=== PATIENT | male | born 1975 | race African-American/Black ===

== ENCOUNTER 2018-04-14 15:41 | Emergency (ER) | payer MEDICAID ==
[~2018-04-14] VITALS: Ht 172.7 cm; Wt 122.0 kg
[2018-04-14 16:00] VITALS: BP 145/82
--- NOTE | 2018-04-14 16:23 | Emergency Room Report ---
History of Present Illness General Chief Complaint: Nausea Present Illness HPI 43-year-old male presents to the emergency department after episode of nausea, vomiting, diaphoresis and drained seeing some tunnel vision. Patient reports this is the fourth episode he's had this morning. Patient states first episode of vomiting began at approximately 7 AM. Patient reports he's been having chills all day denies fevers states this is the first time he began having the diaphoresis and feeling lightheaded. Patient denies chest pain or headaches. Patient reports midepigastric pain that is constant and he describes burning in sensation. Patient reports history of high blood pressure denies history of cardiac disease or hyperlipidemia. He denies blood in the vomit he denies constipation, diarrhea or black tarry stools. Allergies: Coded Allergies: No Known Allergies (Unverified , 04/14/18) Patient History Past Medical History: see triage record Past Surgical History: none Pertinent Family History: none Reviewed Nursing Documentation: PMH: Agreed; PSxH: Agreed Review of Systems All Other Systems: negative except mentioned in HPI Physical Exam Vital Signs Date Time Temp Pulse Resp B/P (MAP) Pulse Ox O2 Delivery O2 Flow Rate FiO2 04/14/18 15:45 98.1 90 18 154/78 98 Room Air 98.1 Medical Decision Making PA Attestation Dr. guerrero is my supervising Physician whom patient management has been discussed with. Diagnostic Impression: Primary Impression: Hyperemesis Additional Impressions: Cannabinoid hyperemesis syndrome Abdominal pain Qualified Codes: R10.13 - Epigastric pain ER Course Pt. presents to the ED c/oN/V/D x [ ] Ddx considered but are not limited to GE, colitis, acute appy, SBO, Cyclical Vomiting secondary to THC, SD/cardiac etiology. Vital signs: pt. is afebrile, H&PE are most consistent with vaso vagal response due to depleted fluids secondary to vomiting. no evidence to suggest acute abdomen on physical exam. ORDERS: Basic labs, including lipase : all unremarkable -UDS: Positive for THC ED INTERVENTIONS: -1000 NS iv hydration, -Zofran 4mg -Toradol IV -Reglan IV..pt. continues to gag/vomit - now suspicious for cannabinoid hyperemesis. -Haldol IM DISCHARGE: At this time pt. is stable for d/c to home. Will provide printed patient care instructions, and any necessary prescriptions. Care plan and follow up instructions have been discussed with the patient prior to discharge. Labs Test 04/14/18 19:30 White Blood Count 11.3 K/UL (4.8-10.8) Red Blood Count 4.50 M/UL (4.70-6.10) Hemoglobin 16.1 G/DL (14.2-18.0) Hematocrit 46.5 % (42.0-52.0) Mean Corpuscular Volume 103 FL (80-99) Mean Corpuscular Hemoglobin 35.8 PG (27.0-31.0) Mean Corpuscular Hemoglobin Concent 34.7 G/DL (32.0-36.0) Red Cell Distribution Width 10.5 % (11.6-14.8) Platelet Count 299 K/UL (150-450) Mean Platelet Volume 5.5 FL (6.5-10.1) Neutrophils (%) (Auto) % (45.0-75.0) Lymphocytes (%) (Auto) % (20.0-45.0) Monocytes (%) (Auto) % (1.0-10.0) Eosinophils (%) (Auto) % (0.0-3.0) Basophils (%) (Auto) % (0.0-2.0) Differential Total Cells Counted 100 Neutrophils % (Manual) 85 % (45-75) Lymphocytes % (Manual) 9 % (20-45) Monocytes % (Manual) 5 % (1-10) Eosinophils % (Manual) 0 % (0-3) Basophils % (Manual) 0 % (0-2) Band Neutrophils 1 % (0-8) Platelet Estimate Adequate Platelet Morphology Normal Red Blood Cell Morphology Normal Sodium Level 141 MMOL/L (136-145) Potassium Level 3.8 MMOL/L (3.5-5.1) Chloride Level 104 MMOL/L (98-107) Carbon Dioxide Level 27 MMOL/L (21-32) Anion Gap 10 mmol/L (5-15) Blood Urea Nitrogen 9 mg/dL (7-18) Creatinine 0.9 MG/DL (0.55-1.30) Estimat Glomerular Filtration Rate > 60 mL/min (>60) Glucose Level 98 MG/DL (74-106) Calcium Level 8.8 MG/DL (8.5-10.1) Total Bilirubin 0.6 MG/DL (0.2-1.0) Aspartate Amino Transf (AST/SGOT) 21 U/L (15-37) Alanine Aminotransferase (ALT/SGPT) 34 U/L (12-78) Alkaline Phosphatase 83 U/L (46-116) Total Protein 7.3 G/DL (6.4-8.2) Albumin 3.4 G/DL (3.4-5.0) Globulin 3.9 g/dL Albumin/Globulin Ratio 0.9 (1.0-2.7) Lipase 304 U/L (73-393) Urine Opiates Screen Negative (NEGATIVE) Urine Barbiturates Screen Negative (NEGATIVE) Phencyclidine (PCP) Screen Negative (NEGATIVE) Urine Amphetamines Screen Negative (NEGATIVE) Urine Benzodiazepines Screen Negative (NEGATIVE) Urine Cocaine Screen Negative (NEGATIVE) Urine Marijuana (THC) Screen Positive (NEGATIVE) EKG Diagnostic Results EP Interpretation: Dr. lala Rate: normal - 81 bpm Rhythm: NSR ST Segments: no acute changes ASA given to the pt in ED: No PA Scribe Text This Interpretation was scribed by MARGARET Saenz. CT/MRI/US Diagnostic Results CT/MRI/US Diagnostic Results : Imaging Test Ordered: Ct abdomen and pelvis with contrast Impression Radiological Impression was "unremarkable" per official radiology report. Please refer to radiologist reports for any specific details. Last Vital Signs Date Time Temp Pulse Resp B/P (MAP) Pulse Ox O2 Delivery O2 Flow Rate FiO2 04/14/18 15:45 98.1 90 18 154/78 98 Room Air 98.1 Disposition: HOME, SELF-CARE Condition: Stable Patient Instructions: Nausea and Vomiting, Adult Additional Instructions: Take medications as directed. - discontinue use of marijuana/ cannabis products. Follow up with a Primary Care Provider in 3-5 days, even if your symptoms have resolved. --Please review list of primary care clinics, if you do not already have a primary care provider Return sooner to ED if new symptoms occur, or current symptoms become worse. - Please note that this Emergency Department Report was dictated using [employer] order filler technology software, occasionally this can lead to erroneous entry secondary to interpretation by the dictation equipment. Jemima Saenz Apr 14, 2018 16:23
[2018-04-14] MEDS ORDERED: Metoclopramide 10mg/2ml Inj IVP ONE (17:45)
[2018-04-14] MEDS ORDERED: Lidocaine 2% Visc 15ml soln ORAL ONE (17:45)
[2018-04-14 18:00] VITALS: BP 115/61
[2018-04-14] MEDS ORDERED: Ketorolac 30mg Inj IV ONE (18:45)
[2018-04-14 19:38] VITALS: BP 157/78
[2018-04-14 19:58] LABS: HEMATOCRIT 46.5 % (42.0-52.0); HEMOGLOBIN 16.1 G/DL (14.2-18.0); MEAN CORPUSCULAR VOLUME 103 FL (80-99); PLATELET COUNT 299 K/UL (150-450); RED CELL DISTRIBUTION WIDTH 10.5 % (11.6-14.8); WHITE BLOOD COUNT 11.3 K/UL (4.8-10.8)
[2018-04-14] MEDS ORDERED: Pantoprazole Inj IVP ONE (20:00)
[2018-04-14] MEDS ORDERED: Isovue-300 100ml vial INJ PRN (20:00)
[2018-04-14 20:15] LABS: ANION GAP 10 mmol/L (5-15); BLOOD UREA NITROGEN 9 mg/dL (7-18); CALCIUM 8.8 MG/DL (8.5-10.1); CARBON DIOXIDE 27 MMOL/L (21-32); CHLORIDE 104 MMOL/L (98-107); CREATININE 0.9 MG/DL (0.55-1.30); POTASSIUM 3.8 MMOL/L (3.5-5.1); SODIUM 141 MMOL/L (136-145)
[2018-04-14 20:20] LABS: ALANINE AMINOTRANSFERASE 34 U/L (12-78); ALBUMIN 3.4 G/DL (3.4-5.0); ALBUMIN/GLOBULIN RATIO 0.9 (1.0-2.7); ALKALINE PHOSPHATASE 83 U/L (46-116); ASPARTATE AMINO TRANSFERASE 21 U/L (15-37); BILIRUBIN,TOTAL 0.6 MG/DL (0.2-1.0)
[2018-04-14] MEDS ORDERED: Haloperidol 5mg/ml Inj IM ONE (20:45)
--- NOTE | 2018-04-14 21:33 | Diagnostic Imaging Report ---
EXAM: CT Abdomen and Pelvis With Intravenous Contrast CLINICAL HISTORY: PAIN TECHNIQUE: Axial computed tomography images of the abdomen and pelvis with intravenous contrast. CTDI is 19 mGy and DLP is 1160 mGy-cm. One or more of the following dose reduction techniques were used: automated exposure control, adjustment of the mA and/or kV according to patient size, use of iterative reconstruction technique. COMPARISON: No relevant prior studies available. FINDINGS: Lung bases: Unremarkable. No mass. No consolidation. ABDOMEN: Liver: There is some slight low attenuation of the liver parenchyma which can be seen in hepatic steatosis. Gallbladder and bile ducts: Unremarkable. No calcified stones. No ductal dilation. Pancreas: Unremarkable. No mass. No ductal dilation. Spleen: Unremarkable. No splenomegaly. Adrenals: Unremarkable. No mass. Kidneys and ureters: Renal cysts measure up to 1.6 x 1.5 cm. No hydronephrosis. Stomach and bowel: Unremarkable. No obstruction. No mucosal thickening. PELVIS: Appendix: No findings to suggest acute appendicitis. Bladder: Unremarkable. No mass. Reproductive: Unremarkable as visualized. ABDOMEN and PELVIS: Intraperitoneal space: Unremarkable. No free air. No significant fluid collection. Bones/joints: No acute fracture. No dislocation. Soft tissues: Unremarkable. Vasculature: Atherosclerosis of the bilateral iliac arteries. No abdominal aortic aneurysm. Lymph nodes: Unremarkable. No enlarged lymph nodes. IMPRESSION: No acute abdominal or pelvic pathology. No CT cause for pain is identified.
[2018-04-14] MEDS ORDERED: CAPSAICIN42.5 GM TP (21:44)
[2018-04-14 22:15] VITALS: BP 137/89
== END 2018-04-14 22:15 | disposition home or self-care (01) ==
LOC: EDBD 15:41 → EMR 16:16
DX: F12.188 Cannabis abuse with other cannabis-induced disorder (principal); R11.10 Vomiting, unspecified; R10.9 Unspecified abdominal pain
CPT/HCPCS: 36415; 74177; 80053; 80307; 83690; 85007; 85025; 93005; 96361; 96374; 96375; 99284; C9113; J1630; J1885; J2405; J2765; Q9967